=== PATIENT | female | born 1965 | race Caucasian/White ===

== ENCOUNTER 2021-08-12 11:55 | Emergency (ER) | payer OTHER ==
[2021-08-12 12:02] VITALS: BP 144/81; PULSE 87; TEMP 97; BMI 30.4
[2021-08-12] MEDS ORDERED: KETOROLAC TROMETHAMINE 30 MG/1 ML VIAL IM ONE (12:22)
[2021-08-12] MEDS ORDERED: KETOROLAC TROMETHAMINE 30 MG/1 ML VIAL ONE (12:24)
== END 2021-08-12 12:28 | disposition home or self-care (01) ==
LOC: JERFT 11:55
PROC: 3E0233Z Introduction of Anti-inflammatory into Muscle, Percutaneous Approach (ICD-10-PCS; principal; 2021-08-12)
DX: M54.50 Low back pain, unspecified (principal)
CPT/HCPCS: 96372; 99283-25

== ENCOUNTER 2022-04-12 11:28 | Emergency (ER) | payer OTHER ==
[2022-04-12 11:33] VITALS: BP 169/78; PULSE 81; RESP 18; TEMP 97; BMI 28.7
[2022-04-12] MEDS ORDERED: KETOROLAC TROMETHAMINE 30 MG/1 ML VIAL IM ONE (12:15)
[2022-04-12] MEDS ORDERED: KETOROLAC TROMETHAMINE 30 MG/1 ML VIAL ONE (12:20)
== END 2022-04-12 12:27 | disposition home or self-care (01) ==
LOC: JERFT 11:28
PROC: 3E0233Z Introduction of Anti-inflammatory into Muscle, Percutaneous Approach (ICD-10-PCS; principal; 2022-04-12)
DX: M54.42 Lumbago with sciatica, left side (principal)
CPT/HCPCS: 99283-25